=== PATIENT | male | born 1990 | race African-American/Black ===

== ENCOUNTER 2016-08-29 12:18 | Emergency (ER) | payer BC ==
[~2016-08-29] VITALS: Ht 180.3 cm; Wt 101.6 kg
[~2016-08-29 12:18] MED LIST: APAP W/CODEINE1 TA2 PO; CIPROFLOXACIN500 M1 PO; IBUPROFEN 600600 M1 PO; NOHOMEMEDICATIONS; NORCO 5-325 TA1 EACH PO; ONDANSETRON HCL4 M2 PO; PROMETHAZINE-C120 ML PO; PROVENTIL HFA6.7 G1 INH; TRAMADOL 50 MG50 MG PO; ULTRAM 50MG TAB50 MG PO; ZOFRAN4 MG PO; ZPAK PO
[2016-08-29] MEDS ORDERED: TESSALON PERLE100 MG PO (12:58)
[2016-08-29] MEDS ORDERED: ZPAK PO (13:06)
[2016-08-29] MEDS ORDERED: PREDNISONE 20 M20 MG PO (13:06)
[2016-08-29 13:21] VITALS: BP 161/108
== END 2016-08-29 13:25 | disposition home or self-care (01) ==
LOC: ER 12:18
DX: J15.9 Unspecified bacterial pneumonia (principal)

== ENCOUNTER 2020-08-15 15:46 | Emergency (ER) | payer OTHER ==
[~2020-08-15] VITALS: Ht 180.3 cm; Wt 98.9 kg
[~2020-08-15 15:46] MED LIST changes: +PREDNISONE 20 M20 MG PO; +TESSALON PERLE100 MG PO
[2020-08-15 15:55] VITALS: BP 140/74
[2020-08-15] MEDS ORDERED: CYCLOBENZAPRINE5 MG PO (17:04)
[2020-08-15] MEDS ORDERED: MOBIC7.5 MG PO (17:04)
== END 2020-08-15 17:12 | disposition home or self-care (01) ==
LOC: ER 15:46
DX: S70.12XA Contusion of left thigh, initial encounter (principal); M25.562 Pain in left knee; Z79.899 Other long term (current) drug therapy; V43.52XA Car driver injured in collision with other type car in traffic accident, initial encounter; Y93.89 Activity, other specified; Y92.89 Other specified places as the place of occurrence of the external cause; Y99.8 Other external cause status